=== PATIENT | male | born 1980 | race African-American/Black ===

== ENCOUNTER 2023-07-09 19:41 | Emergency (ER) | payer SELFPAY ==
[~2023-07-09 19:41] MED LIST: HYDR100T26 PO; ISOS40TA17 PO; LABE300T36 MT; LOSA100T33 MT
== END 2023-07-09 20:00 | disposition left against medical advice (07) ==
LOC: ER 19:41
DX: R06.02 Shortness of breath (principal); Z53.21 Procedure and treatment not carried out due to patient leaving prior to being seen by health care provider